=== PATIENT | female | born 1970 | race African-American/Black ===

== ENCOUNTER 2017-03-18 10:03 | Emergency (ER) | payer OTHER ==
[~2017-03-18 10:03] MED LIST: ALBUTEROL17 GM INH; AZITHROMYCIN250 MG PO; COMBIVENT U/D3 M2 INH; COMBIVENT U/D3 ML INH; MOTRIN400 MG PO; MOTRIN600 MG PO; PREDNISONE PO; PREDNISONE10 MG/DOSE PO; SYMBICORT INH; TUSSIONEX PENN480 ML PO; TYLENOL325 M1 PO; VIBRAMYCIN100 M1 PO
== END 2017-03-18 12:59 | disposition home or self-care (01) ==
LOC: CED 10:03
DX: S33.5XXA Sprain of ligaments of lumbar spine, initial encounter (principal); J44.9 Chronic obstructive pulmonary disease, unspecified; F17.210 Nicotine dependence, cigarettes, uncomplicated; Z79.899 Other long term (current) drug therapy; X50.0XXA Overexertion from strenuous movement or load, initial encounter
CPT/HCPCS: 96372; 99283; J1885